=== PATIENT | female | born 1950 | race American Indian/Alaskan Native ===

== ENCOUNTER 2017-03-20 10:24 | Emergency (ER) | payer OTHER, BC ==
[~2017-03-20] VITALS: Ht 157.5 cm; Wt 74.8 kg
[2017-03-20] MEDS ORDERED: ZESTRIL10 M1 (10:29)
[2017-03-20] MEDS ORDERED: TUSSI PRES-B L120 M1 PO (13:55)
[2017-03-20] MEDS ORDERED: OSEL75CA PO (13:55)
== END 2017-03-20 14:28 | disposition home or self-care (01) ==
LOC: ER 10:24
DX: J11.1 Influenza due to unidentified influenza virus with other respiratory manifestations (principal); B34.9 Viral infection, unspecified